=== PATIENT | male | born 1950 | race Caucasian/White ===

== ENCOUNTER 2021-06-03 02:48 | Emergency (ER) | payer MEDICARE | END 2021-06-03 04:09 | disposition home or self-care (01) | LOC: MADERS 02:48 | DX: T83.091A Other mechanical complication of indwelling urethral catheter, initial encounter (principal); R33.9 Retention of urine, unspecified; Z87.442 Personal history of urinary calculi | CPT/HCPCS: 51702 ==

== ENCOUNTER 2021-06-05 23:50 | Emergency (ER) | payer MEDICARE | END 2021-06-06 01:10 | disposition home or self-care (01) | LOC: MADERS 23:50 | DX: T83.011A Breakdown (mechanical) of indwelling urethral catheter, initial encounter (principal) | CPT/HCPCS: 99283 ==

== ENCOUNTER 2021-06-10 08:33 | Emergency (ER) | payer MEDICARE ==
[2021-06-10 11:34] LABS: Bilirubin Negative (Negative); Blood, Urine Large (Negative); Glucose, Urine (Dipstick) 100 mg/dL (Negative); Ketone, Urine Negative (Negative); Leukocyte Small (Negative); Nitrite Positive (Negative); Protein, Urine (Dipstick) 100 mg/dL (Neg-Trace)
[2021-06-10 11:36] LABS: Clarity Hazy (Clear)
[2021-06-10 11:37] LABS: Bacteria/HPF 1+ HPF (None Seen); RBC/HPF Greater than 50 HPF (0-3); Squamous Epithelial 0-3 HPF (0-3)
== END 2021-06-10 12:38 | disposition home or self-care (01) ==
LOC: MADERS 08:33
DX: N30.01 Acute cystitis with hematuria (principal); N32.89 Other specified disorders of bladder
CPT/HCPCS: 81003; 81015; 87086; 99283

== ENCOUNTER 2021-06-14 11:14 | Emergency (ER) | payer MEDICARE | END 2021-06-14 15:17 | disposition home or self-care (01) | LOC: MADERS 11:14 | DX: K59.00 Constipation, unspecified (principal); N40.1 Benign prostatic hyperplasia with lower urinary tract symptoms; R33.8 Other retention of urine; Z87.442 Personal history of urinary calculi; Z87.19 Personal history of other diseases of the digestive system; Z79.899 Other long term (current) drug therapy | CPT/HCPCS: 51702; 74018 ==

== ENCOUNTER 2021-06-14 23:34 | Emergency (ER) | payer MEDICARE | END 2021-06-15 01:10 | disposition home or self-care (01) | LOC: MADERS 23:34 | DX: Z46.6 Encounter for fitting and adjustment of urinary device (principal); R21 Rash and other nonspecific skin eruption; N40.0 Benign prostatic hyperplasia without lower urinary tract symptoms; Z87.442 Personal history of urinary calculi; Z87.19 Personal history of other diseases of the digestive system; Z79.899 Other long term (current) drug therapy | CPT/HCPCS: 99283 ==

== ENCOUNTER 2021-06-17 08:46 | Emergency (ER) | payer MEDICARE ==
[2021-06-17 10:17] LABS: Bilirubin Negative (Negative); Blood, Urine Large (Negative); Clarity Clear (Clear); Glucose, Urine (Dipstick) Negative (Negative); Ketone, Urine Negative (Negative); Leukocyte Negative (Negative); Nitrite Negative (Negative); Protein, Urine (Dipstick) 30 mg/dL (Neg-Trace); Urobilinogen 0.2 mg/dL (Less than 2); pH, Urine 6.5 (5.0-9.0)
[2021-06-17 10:19] LABS: Bacteria/HPF None Seen HPF (None Seen); RBC/HPF 21-50 HPF (0-3); Squamous Epithelial 0-3 HPF (0-3); WBC/HPF 0-3 HPF (0-3)
== END 2021-06-17 10:45 | disposition home or self-care (01) ==
LOC: MADERS 08:46
DX: T83.091A Other mechanical complication of indwelling urethral catheter, initial encounter (principal); N40.1 Benign prostatic hyperplasia with lower urinary tract symptoms; R33.8 Other retention of urine
CPT/HCPCS: 51702; 81003; 81015

== ENCOUNTER 2021-07-01 02:16 | Emergency (ER) | payer MEDICARE ==
[2021-07-01 03:07] LABS: Bilirubin Negative (Negative); Blood, Urine Large (Negative); Clarity Cloudy (Clear); Glucose, Urine (Dipstick) Negative (Negative); Ketone, Urine Trace mg/dL (Negative); Leukocyte Trace (Negative); Nitrite Negative (Negative); Protein, Urine (Dipstick) 100 mg/dL (Neg-Trace); Urobilinogen 0.2 mg/dL (Less than 2)
[2021-07-01 03:08] LABS: Specific Gravity, Urine 1.024 (1.002-1.036)
[2021-07-01 03:13] LABS: Mucous/LPF 2+ LPF (<2+); RBC/HPF Greater than 50 HPF (0-3)
== END 2021-07-01 03:09 | disposition home or self-care (01) ==
LOC: MADERS 02:16
DX: T83.031A Leakage of indwelling urethral catheter, initial encounter (principal); N40.1 Benign prostatic hyperplasia with lower urinary tract symptoms; R33.8 Other retention of urine
CPT/HCPCS: 51702; 81003; 81015; 87086

== ENCOUNTER 2021-07-12 09:31 | Emergency (ER) | payer MEDICARE ==
[2021-07-12] MEDS ORDERED: Sterile Water 0 ML ONE (10:25)
== END 2021-07-12 12:50 | disposition home or self-care (01) ==
LOC: MADERS 09:31
DX: T83.098A Other mechanical complication of other urinary catheter, initial encounter (principal); N40.1 Benign prostatic hyperplasia with lower urinary tract symptoms; R33.8 Other retention of urine; Z87.442 Personal history of urinary calculi; Z87.19 Personal history of other diseases of the digestive system
CPT/HCPCS: 51798

== ENCOUNTER 2022-05-21 10:36 | Outpatient (CLI) | payer MEDICARE, OTHER ==
[2022-05-21 11:13] LABS: ALT (SGPT) 14 U/L (8-55); AST (SGOT) 19 U/L (5-34); Alkaline Phosphatase 67 U/L (40-110); Anion Gap 12 mmol/L (10-20); BUN (Urea Nitrogen) 22 mg/dL (8.4-25.7); Bilirubin, Total 0.4 mg/dL (0.2-1.2); Calc. Creatinine Clearance 0 mL/min (70-130); Calcium 9.3 mg/dL (7.8-10.44); Carbon Dioxide 24 mmol/L (23-31); Cardiac Risk 4.2 (Less than 4.5); Chloride 107 mmol/L (98-107); Cholesterol 171 mg/dl (< 200 Desired); Estimated GFR 94; Globulin 2.8 g/dL (2.4-3.5); Glucose 110 mg/dL (80-115); HDL Cholesterol 41 mg/dL (>60 Neg Risk); LDL Cholesterol, Calculated 117 mg/dL; Potassium 4.4 mmol/L (3.5-5.1); Protein, Total 6.8 g/dL (5.8-8.1); Sodium 139 mmol/L (136-145); Triglycerides 65 mg/dL (Less than 150)
[2022-05-21 11:25] LABS: Thyroid Stimulating Hormone 1.6336 uIU/mL (0.35-4.94)
[2022-05-21 16:52] LABS: Hemoglobin A1c 5.4 % (4.0-6.0)
[2022-05-21 17:13] LABS: Free T4 (Free Thyroxine) 0.91 ng/dL (0.70-1.48)
== END 2022-05-21 10:37 | disposition home or self-care (01) ==
LOC: MADLABBHPM 10:36 → MADLAB 10:37
PROVIDERS: ATTEND Family Medicine
DX: E66.9 Obesity, unspecified (principal)
CPT/HCPCS: 80053; 80061; 83036; 84439; 84443; 84481